=== PATIENT | female | born 1990 | race Caucasian/White ===

== ENCOUNTER 2018-05-27 10:38 | Emergency (ER) | payer OTHER ==
[2018-05-27 10:45] VITALS: BP 123/79; PULSE 80; RESP 15; TEMP 98.8; O2SAT 98
[2018-05-27] MEDS ORDERED: Lidocaine 2% w Epi 1:100,000 Inj IJ ONE ×2 (12:14→12:21)
[2018-05-27] MEDS ORDERED: Povidone Iodine Topical 10% Sol ONE (12:24)
--- NOTE | 2018-05-27 13:21 | ED PDOC ---
HPI: General Adult Time Seen by Provider: 05/27/18 12:02 Chief Complaint (Nursing): Abnormal Skin Integrity Chief Complaint (Provider): Abnormal Skin Integrity History Per: Patient History/Exam Limitations: no limitations Onset/Duration Of Symptoms: Days (x5) Current Symptoms Are (Timing): Still Present Additional Complaint(s): Paola Haney is a 27 year old female with no past medical history who is presenting to the ED for evaluation of possible abscess to right axilla onset 5 days ago. Patient states that she started noticing an area of redness to right armpit 5 days ago and reports that she has been using tea tree oil with no improvement. She admits that the redness was progressing and the area was becoming firm and started draining pus today. Patient denies any fevers, chills, or night sweats. PMD: none provided Past Medical History Reviewed: Historical Data, Nursing Documentation, Vital Signs Vital Signs: Last Vital Signs Temp 98.8 F 05/27/18 10:45 Pulse 80 05/27/18 10:45 Resp 15 05/27/18 10:45 BP 123/79 05/27/18 10:45 Pulse Ox 98 05/27/18 10:45 - Medical History PMH: No Chronic Diseases - Surgical History Surgical History: No Surg Hx - Family History Family History: States: Unknown Family Hx - Social History Current smoker - smoking cessation education provided: Yes Alcohol: Social Drugs: Denies - Home Medications Home Medications: Ambulatory Orders Medication Instructions Recorded Benzoyl Peroxide 30 ml TP BID #1 lotion 11/27/15 Minocycline HCl [Minocin] 100 mg PO BID #14 capsule 11/27/15 Cephalexin [cephalexin] 500 mg PO QID 5 Days cap 05/27/18 Ibuprofen [Motrin Tab] 800 mg PO Q6 PRN 7 Days tab 05/27/18 - Allergies Allergies/Adverse Reactions: Allergies Allergy/AdvReac Type Severity Reaction Status Date / Time No Known Allergies Allergy Verified 08/01/15 01:16 Review of Systems ROS Statement: Except As Marked, All Systems Reviewed And Found Negative Constitutional: Negative for: Fever, Chills, Sweats Musculoskeletal: Positive for: Other (abscess to right axilla ) Physical Exam - Reviewed Nursing Documentation Reviewed: Yes Vital Signs Reviewed: Yes - Physical Exam Appears: Positive for: Non-toxic, No Acute Distress Head Exam: Positive for: ATRAUMATIC, NORMAL INSPECTION, NORMOCEPHALIC Skin: Positive for: Normal Color, Warm, DRY Cardiovascular/Chest: Positive for: Other (papule noted on left chest below axilla: erythematous ) Extremity: Positive for: Normal ROM, Other (right axilla: 2x7 cm area of firm induration with some fluctuance, purulent drainage coming from punctate lesion with associated erythema: superior to that another small punctate lesion with associated erythema, no drainage or fluctuance or induration noted). Negative for: Deformity, Swelling Lymphatic: Positive for: Normal Exam (normal for right axilla as well) Neurologic/Psych: Positive for: Alert, Oriented. Negative for: Motor/Sensory Deficits - ECG O2 Sat by Pulse Oximetry: 98 (RA) Pulse Ox Interpretation: Normal Medical Decision Making Medical Decision Making: Time: 13:24 Plan: --Incision and drainage attempted with minimal drainage. --Tylenol 975 mg PO. --Patient advised to use warm compresses several times a day on area and prescription for Keflex. -- Patient advised to return to ED in 2 days for reassessment Scribe Attestation: Documented by, Olesya Olson acting as a scribe for Tonia Ngo PA-C. Provider Scribe Attestation: All medical record entries made by the Scribe were at my direction and personally dictated by me. I have reviewed the chart and agree that the record accurately reflects my personal performance of the history, physical exam, medical decision making, and the department course for this patient. I have also personally directed, reviewed, and agree with the discharge instructions and disposition. Procedures - Incision and Drainage Site: right axilla Blade Size: 10 I & D Procedure: betadine prep Progress: --small T incision 1.5 cm x 1 cm with minimal purulent drainage --Some bleeding, no pocket noted, unable to insert packing material, 2% lido with epi and betadine prep used Disposition - Clinical Impression Clinical Impression: Axillary abscess - Patient ED Disposition Is Patient to be Admitted: No - Disposition Referrals: [facility] [Outside] Disposition: Routine/Home Disposition Time: 13:36 Condition: STABLE Additional Instructions: Use warm compresses several times a day for the next 2 days to attempt to soften area enough so that it will drain. Complete full course of antibiotic unless otherwise instructed by a healthcare provider. Return to ER in 2 days for wound recheck or sooner if you develop fevers. Use Tylenol or Ibuprofen for pain. Prescriptions: Cephalexin [cephalexin] 500 mg PO QID 5 Days cap Ibuprofen [Motrin Tab] 800 mg PO Q6 PRN 7 Days tab PRN Reason: Pain, Moderate (4-7) Instructions: Boil (DC), Abscess Incision and Drainage (DC) Forms: [employer] (Danish), [facility] ED School/Work Excuse Print Language: IVORIAN
== END 2018-05-27 13:37 | disposition home or self-care (01) ==
LOC: H.ER 10:38
DX: L02.411 Cutaneous abscess of right axilla (principal)